=== PATIENT | male | born 1985 | race Caucasian/White ===

== ENCOUNTER 2017-05-22 07:09 | Emergency (ER) | payer SELFPAY ==
[2017-05-22 07:16] VITALS: BP 130/78; PULSE 73; RESP 18; TEMP 97.9
[2017-05-22] MEDS ORDERED: SODIUM CHLORIDE 0.9% 500 ML IV STA (07:51)
[2017-05-22] MEDS ORDERED: RX INFO: IV CONTRAST WAS GIVEN 1 EACH MISC MISCELLANE PRN (07:51)
[2017-05-22] MEDS ORDERED: MORPHINE SULFATE 5 MG/ML SYRINGE IV STA (07:51)
[2017-05-22] MEDS ORDERED: SODIUM CHLORIDE 0.9% 1,000 ML IV STA (07:51)
--- NOTE | 2017-05-22 08:24 | ED ---
General Adult HPI - General Chief complaint: Abdominal Pain Stated complaint: Abdominal Pain Time Seen by Provider: 05/22/17 07:25 Source: patient, RN notes reviewed, old records reviewed Mode of arrival: ambulatory Limitations: no limitations - History of Present Illness Initial comments: This is a 32-year-old male the ER for evaluation of bowel pain, severe anterior abdominal pain. Patient states the has no pain medication modifying factors for pain at home, denies fever, no nausea vomiting or diarrhea. No difficulties with urination. No rashes. Patient has no prior history of similar pain no significant medical history. - Related Data Allergies Allergy/AdvReac Type Severity Reaction Status Date / Time No Known Allergies Allergy Verified 05/22/17 07:15 Review of Systems ROS Statement: Those systems with pertinent positive or pertinent negative responses have been documented in the HPI. ROS Other: All systems not noted in ROS Statement are negative. Past Medical History Past Medical History: No Reported History History of Any Multi-Drug Resistant Organisms: None Reported Past Surgical History: No Surgical Hx Reported Past Psychological History: No Psychological Hx Reported Smoking Status: Never smoker Past Alcohol Use History: None Reported Past Drug Use History: None Reported General Exam Limitations: no limitations General appearance: alert, in no apparent distress Head exam: Present: atraumatic, normocephalic, normal inspection Eye exam: Present: normal appearance, PERRL, EOMI. Absent: scleral icterus, conjunctival injection, periorbital swelling ENT exam: Present: normal exam, mucous membranes moist Neck exam: Present: normal inspection. Absent: tenderness, meningismus, lymphadenopathy Respiratory exam: Present: normal lung sounds bilaterally. Absent: respiratory distress, wheezes, rales, rhonchi, stridor Cardiovascular Exam: Present: regular rate, normal rhythm, normal heart sounds. Absent: systolic murmur, diastolic murmur, rubs, gallop, clicks GI/Abdominal exam: Present: soft, normal bowel sounds. Absent: distended, tenderness, guarding, rebound, rigid Extremities exam: Present: normal inspection, full ROM, normal capillary refill. Absent: tenderness, pedal edema, joint swelling, calf tenderness Back exam: Present: normal inspection Neurological exam: Present: alert, oriented X3, CN II-XII intact Psychiatric exam: Present: normal affect, normal mood Skin exam: Present: warm, dry, intact, normal color. Absent: rash Course Vital Signs 05/22/17 07:13 Temperature 97.9 F Pulse Rate 73 Respiratory 18 Rate Blood Pressure 130/78 O2 Sat by Pulse 98 Oximetry Disposition Clinical Impression: Abdominal pain Disposition: Left Against Medical Advice Condition: Good Instructions: Abdominal Pain (ED) Referrals: Micky Benson MD [Primary Care Provider] - 1-2 days
== END 2017-05-22 08:20 | disposition left against medical advice (07) ==
LOC: EC 07:09
DX: R10.9 Unspecified abdominal pain (principal)
CPT/HCPCS: 99284

== ENCOUNTER → 2018-09-02 | Outpatient (CLI) | payer OTHER ==
--- NOTE | 2018-09-02 14:47 | MR ---
EXAMINATION TYPE: MR lumbar spine wo con DATE OF EXAM: 09/02/2018 COMPARISON: None HISTORY: Lumbar Radiculopathy TECHNIQUE: Multiplanar, multisequence images of the lumbar spine were acquired. L1-L2: Normal disc appearance without desiccation. No herniation, protrusion or disc bulging. No ca nal stenosis is present. Foramina are patent bilaterally. L2-L3: Normal disc appearance without desiccation. No herniation, protrusion or disc bulging. No ca nal stenosis is present. Foramina are patent bilaterally. L3-L4: Normal disc appearance without desiccation. No herniation, protrusion or disc bulging. No ca nal stenosis is present. Foramina are patent bilaterally. L4-L5: Normal disc appearance without desiccation. No herniation, protrusion or disc bulging. No ca nal stenosis is present. Foramina are patent bilaterally. L5-S1: There is a loss of disc height and signal at intervertebral level with associated endplate dis cogenic marrow signal change, there is a disc herniation present with probable extruded disc fragment causing anterolateral mass effect on the thecal sac posterior to the L5 vertebral body and also like ly on the right S1 nerve root. No significant foraminal encroachment on the right, circumferential ex tension of endplate disc complex encroaches somewhat on the left neural foramen. There is a posterior broad-based disc bulge present which may contact the proximal left S1 nerve root. Lumbar segments are intact. No paraspinal masses are identified. Conus medullaris has a normal appe arance. Lumbar vertebral bodies show preserved height and alignment. Suspect marrow signal is due to red marrow. IMPRESSION: Large disc herniation, disc fragment present as described posterior to the L5 vertebral body
== END | disposition home or self-care (01) ==
LOC: RADMRIMAIN 11:17
PROVIDERS: ATTEND Family Medicine
DX: M51.16 Intervertebral disc disorders with radiculopathy, lumbar region (principal)
CPT/HCPCS: 72148

== ENCOUNTER → 2018-11-15 | Outpatient (CLI) | payer OTHER ==
[2018-11-15 12:36] VITALS: BP 113/73; RESP 16
--- NOTE | 2018-11-15 13:02 | P.PAINCN ---
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, and he does a lot of heavy lifting, which he doesn't do it anymore, patient reported that the intensity of the pain interfering with her quality of life, it is constant and aggravated with any activity, with intensity 7/10 increased to 10 over 10, is able to ambulate with some difficulty, and all symptoms is low back with the right lower extremity, patient tried physical therapy and chiropractics without any benefit, and he is currently on Motrin and the Neurontin and he continued to have severe pain and numbness, he denies any fever or night sweats he denies any change in the bowel movements or urination. Past Medical History Past Medical History: No Reported History History of Any Multi-Drug Resistant Organisms: None Reported Past Surgical History: No Surgical Hx Reported Smoking Status: Never smoker Medications and Allergies Home Medications Medication Instructions Recorded Confirmed Type Acyclovir 1 tab PO DAILY 11/15/18 11/15/18 History Gabapentin [Neurontin] 1 tab PO TID 11/15/18 11/15/18 History Ibuprofen [Motrin] 1 tab PO DAILY PRN 11/15/18 11/15/18 History Allergies Allergy/AdvReac Type Severity Reaction Status Date / Time No Known Allergies Allergy Verified 11/15/18 12:23 Physical Exam Vitals: Vital Signs Resp BP Pulse Ox 11/15/18 12:30 16 113/73 96 Intake and Output 11/14/18 11/15/18 11/15/18 22:59 06:59 14:59 Other: Weight 92.986 kg Social history : not smoker , NO ETOH , NO Illegal drugs use . : Review of Systems : - Constitutional : no chills , no fever , no night sweats , - Ears : no ear discharge , no change in hearing -Nose, Mouth ,Throat ; no bleeding gums, no sore throat , no epistaxis , -Cardiovascular : Denies chest pain, , no orthopnea , no palpitation -Respiratory : Denies cough , no dyspnea , no hemoptysis -Gastrointestinal : no change in bowel habits , no coffee-ground emesis . -Genitourinary : No hematuria , no discharge , no incontinence, -Musculoskeletal : No gait dysfunction , report low back pain and right lower extremity numbness and tingling , - Neurological : no ataxia , no tremor , no sezure , -Psychatric : no suicidal ideation no hallucination - Endocrine : no cold intolerence , no polyuria , no polydypsia , -Hematologic : no easy bleeding , no easy brusing , -Allergic / immm : no angioedema , no wheezing ,no allergic r hinitis -Integumentary : no brttle nails , no change hair / nails , no foot/leg ulcers . Physical Examinations : -Constitutional : Cooperative , not in acute distress . -HEENT : nech ; supple , no Lymphadenopathy , no Thyromegaly , :eyes : no icterus, no photophobia . ENT : normal oropharynx , no Thrush - Respiratory : Chest clear to auscultations Bilaterally , no wheezing . - Cardiovascular : regular rate and rhythem , S1 , S2 , no S3 , no S4. - Gastrointestina l: abdomen soft no tenderness , no organomegally . - Genitourinary : Defferred . -Integumentary : No cellulitis , no ulcers , normal skin turgor , no cyanotic . - neurologic : Cranial nerve II to XII intact , no focal neurological deffecit -psychatric : alert , oriented X 3 , appropriate affect , intact judgment and insight . -Lymphatic : no Lymphadenopathy. - musculoskeltal: Antalgic gait . Lumber spine moter stegnth lower extremities ,thigh and legs 4/5 Right side , 5/5 Left side Normal sensation in the lower extremities deep tendon reflexes : normal Knee Jerk , normal ankle Jerk lumber facet Loading Test =negative bilaterally Range of motion of the lumbar spine Flexion 60 degrees, extension 30 degrees strait leg raising test , positive at 30 degree on the right side Fabere test positive RT and negative LT . Results Comments: MRI of the lumbar spine done at [facility]= L5-S1 loss of disc height ,and disc herniation. Assessment and Plan Plan: Assessment and plan= 1-lumbar radiculopathy. 2-lumbar disc herniation at L5-S1. Patient could benefit from right-sided L5-S1 transforaminal epidural steroid injections under fluoroscopy guidance, Patient should continue to use his current medication Neurontin 300 mg 3 times a day and Motrin 800 mg 3 times a day when necessary Time with Patient: Greater than 30 PQRS Measure Charge Sheet Measure #130: Documentation of Current Meds in Medical Chart: Patient's medications documented in chart Measure #226: Tobacco Use: Screen & Cessation Intervention: Pt not a tobacco user Measure #111: Pneumonia Vaccination: Pneumococcal vaccine NOT administered or previously given Measure #47: Advance Care Plan: Advance care planning discussed & documented, pt chose/unable to give Measure #412: Opioid Treatment Agreement: No documentation of signed opioid treatment agreement Measure #408: Opioid Therapy Follow-up Evaluation: Patient had NO f/u eval minimum every 3 months during opioid therapy Measure #317: Preventitive Care & Scrn High Bld Press & F/U: Normal blood pressure, f/u not required Measure #128: Body Mass Index (BMI) Screening & Follow-up: BMI documented ABOVE normal parameters - f/u documented Measure #131: Pain Assessment & Follow-up: Pain positive & plan documented, Follow-up scheduled Measure #431: Unhealthy Alcohol Use Preventative Care & Scrn: Patient not identified as an unhealthy alcohol user PQRS Narrative: Smoking Status Never smoker Blood Pressure 113/73 Pain Intensity [Bilateral 5 Lower Back] Scale Used Numeric (1 - 10) Hx Alcohol Use (MH) No Home Medications: Ambulatory Orders Acyclovir 1 tab PO DAILY 11/15/18 Gabapentin [Neurontin] 1 tab PO TID 11/15/18 Ibuprofen [Motrin] 1 tab PO DAILY PRN 11/15/18
== END | disposition home or self-care (01) ==
LOC: PNWHC3 12:14
PROVIDERS: ATTEND Specialist
DX: G89.29 Other chronic pain (principal); M51.17 Intervertebral disc disorders with radiculopathy, lumbosacral region
CPT/HCPCS: 99211

== ENCOUNTER 2018-11-23 08:53 | Day surgery (SDC) | payer OTHER ==
[2018-11-18 11:27] VITALS: BMI 27.0
[~2018-11-23 08:53] MED LIST: LACTATED RINGERS 1,000 ML IV SCH
[2018-11-23 09:17] VITALS: TEMP 97.7
--- NOTE | 2018-11-23 09:38 | P.PCN ---
Date of Procedure: 11/23/18 Description of Procedure: DESCRIPTION OF PROCEDURE(S): PREOPERATIVE DIAGNOSIS: Lumbar radiculopathy POSTOPERATIVE DIAGNOSIS: Lumbar radiculopathy PROCEDURE 1. Transforaminal epidural steroid injection under fluoroscopic guidance right L5-S1 2. Lumbar epidurogram ANESTHESIA: Local with 1% lidocaine 3 ml ; IV sedation with Versed 2 mg and fentanyl 100 micrograms. Surgeon: Andrae Chen M.D. PROCEDURE INDICATION: The patient with low back pain and radiculopathy symptoms unresponsive to conservative treatment. PROCEDURE DESCRIPTION / TECHNIQUE: The patient was seen and identified in the preoperative area. Risks, benefits, complications, and alternatives were discussed with the patient. The patient agreed to proceed with the procedure and signed the consent. IV was started, and vital signs were stable. Patient was taken to the OR and time out was completed. The patient was placed in the prone position on procedure table and a pillow was placed under the abdomen to reduce lumbar lordosis. The lumbosacral area was prepped and draped in the usual sterile fashion. Vital signs were closely monitored during the procedure. Conscious sedation was used. Using oblique fluoroscopy, the chin of the ``Clifford dog and the skin and deeper tissues just below was localized with 1% lidocaine. Subsequently, a 22- gauge 3.5-inch spinal needle was advanced under a tunneled view fluoroscopic guidance just underneath the chin of the ``Clifford dog . Under lateral fluoroscopy, the needle was then advanced to the posterior border of the foramen. After negative aspiration of CSF and blood and with no paresthesias, 1 mL of Omnipaque-240 contrast dye was injected and there was no evidence of intravascular injection. The solution containing 20 mg of Decadron and 1 mL of 0.25% bupivacaine was then delivered. The needle was withdrawn intact. At the end of the procedure, skin was cleansed, and bandages were applied. COMPLICATIONS: None COMMENTS: DISPOSITION / PLANS: The patient was placed in a supine position and transferred to the recovery area in a stable condition for observation. There was no evidence of lower extremity motor or sensory deficit after the procedure. Patient was discharged from the recovery room after meeting discharge criteria. Home discharge instructions were given to the patient by the staff.
[2018-11-23] MEDS ORDERED: IV FLUID CONTINUATION 1,000 ML IV ONE ×2 (09:43)
[2018-11-23 09:59] VITALS: BP 142/82; PULSE 60; RESP 17
--- NOTE | 2018-11-23 15:03 | FL ---
Fluoroscopy HISTORY: Pain 2 seconds fluoroscopy time supplied to the referring clinician. 2 intraoperative C-arm images docume nt the procedure. See dictated report from anesthesia.
== END 2018-11-23 10:07 | disposition home or self-care (01) ==
LOC: ORPAIN 08:53
PROVIDERS: ATTEND Pain Medicine Pain Medicine
DX: G89.29 Other chronic pain (principal); M51.16 Intervertebral disc disorders with radiculopathy, lumbar region; Z79.899 Other long term (current) drug therapy
CPT/HCPCS: 64483

== ENCOUNTER 2018-12-07 06:07 | Day surgery (SDC) | payer OTHER ==
[2018-12-07 06:31] VITALS: TEMP 98.9
[2018-12-07] MEDS ORDERED: LACTATED RINGERS 1,000 ML IV ONE (06:33)
[2018-12-07] MEDS ORDERED: LIDOCAINE 1% 20 ML VIAL (10MG/ML) FOR IV START INTRADERMA ONE (06:34)
[2018-12-07] MEDS ORDERED: LACTATED RINGERS 1,000 ML IV SCH (07:00)
--- NOTE | 2018-12-07 07:48 | P.PCN ---
Date of Procedure: 12/07/18 Procedure(s) Performed: PREOPERATIVE DIAGNOSIS: Lumbar radiculopathy POSTOPERATIVE DIAGNOSIS: Lumbar radiculopathy PROCEDURE 1. Transforaminal epidural steroid injection under fluoroscopic guidance right L5-S1 2. Lumbar epidurogram ANESTHESIA: Local with 1% lidocaine 3 ml ; IV sedation with Versed 2 mg and fentanyl 50 micrograms. Surgeon: Tabby Myers M.D. PROCEDURE INDICATION: The patient with low back pain and radiculopathy symptoms unresponsive to conservative treatment. PROCEDURE DESCRIPTION / TECHNIQUE: The patient was seen and identified in the preoperative area. Risks, benefits, complications, and alternatives were discussed with the patient. The patient agreed to proceed with the procedure and signed the consent. IV was started, and vital signs were stable. Patient was taken to the OR and time out was completed. The patient was placed in the prone position on procedure table. The lumbosacral area was prepped and draped in the usual sterile fashion. Vital signs were closely monitored during the procedure. Conscious sedation was used. Using oblique fluoroscopy, the chin of the ``Clifford dog and the skin and deeper tissues just below was localized with 1% lidocaine. Subsequently, a 22- gauge 3.5-inch Quinke spinal needle was advanced under a tunneled view fluoroscopic guidance just underneath the chin of the ``Clifford dog . Under lateral fluoroscopy, the needle was then advanced to the posterior border of the foramen. After negative aspiration of CSF and blood and with no paresthesias, 1 mL of Isovue 200 contrast dye was injected under live fluoroscopy and there was no evidence of intravascular injection. The solution containing `0 mg of Decadron and 1 mL of 1% lidocaine was then delivered. The needle was withdrawn intact. At the end of the procedure, skin was cleansed, and bandages were applied. COMPLICATIONS: None COMMENTS: DISPOSITION / PLANS: The patient was placed in a supine position and transferred to the recovery area in a stable condition for observation. There was no evidence of lower extremity motor or sensory deficit after the procedure. Patient was discharged from the recovery room after meeting discharge criteria. Home discharge instructions were given to the patient by the staff. The patient will follow up in clinic in 3-4 weeks' time.
[2018-12-07] MEDS ORDERED: IV FLUID CONTINUATION 650 ML IV ONE (07:52)
[2018-12-07 07:57] VITALS: BP 113/66; PULSE 53; RESP 18
--- NOTE | 2018-12-07 08:05 | FL ---
EXAMINATION TYPE: FL guided pain mgmt statistic DATE OF EXAM: 12/07/2018 HISTORY: Flouroscopy time 7 seconds of fluoroscopy provided. IMPRESSION: 1. Fluoroscopy time.
== END 2018-12-07 08:25 | disposition home or self-care (01) ==
LOC: ORPAIN 06:07
PROVIDERS: ATTEND Anesthesiology
DX: M51.16 Intervertebral disc disorders with radiculopathy, lumbar region (principal); Z79.1 Long term (current) use of non-steroidal anti-inflammatories (NSAID); Z79.899 Other long term (current) drug therapy
CPT/HCPCS: 64483; J2250; J1100; J3010; Q9966

== ENCOUNTER 2019-12-22 04:16 | Emergency (ER) | payer BC, OTHER ==
[2019-12-22 04:23] VITALS: TEMP 97.9
--- NOTE | 2019-12-22 04:52 | ED ---
Chest Pain HPI - General Chief Complaint: Chest Pain Stated Complaint: Chest pain, vomiting Time Seen by Provider: 12/22/19 04:26 Source: patient Mode of arrival: ambulatory Limitations: no limitations - History of Present Illness Initial Comments: This patient is 34-year-old man who presents to be evaluated for substernal chest pain that has been going on since a little after 7 PM tonight. Patient states that he had a little bit of stress tonight at work. He states that he had this sent home a worker who had been drinking. Following that he noted that his chest was feeling tight. He also has had some intermittent nausea throughout the course of the evening. MD Complaint: chest pain Onset/Timin -: hour(s) Onset: during rest Pain Location: substernal Pain Radiation: none Severity: moderate Quality: tightness Consistency: constant Improves With: nothing Worsens With: nothing Anginal Symptoms: nausea Treatments Prior to Arrival: none - Related Data Home Medications Medication Instructions Recorded Confirmed Acyclovir 1 tab PO DAILY 11/15/18 12/07/18 Gabapentin [Neurontin] 1 tab PO TID 11/15/18 12/07/18 Ibuprofen [Motrin] 1 tab PO DAILY PRN 11/15/18 12/07/18 Allergies Allergy/AdvReac Type Severity Reaction Status Date / Time No Known Allergies Allergy Verified 12/22/19 04:23 Review of Systems ROS Statement: Those systems with pertinent positive or pertinent negative responses have been documented in the HPI. ROS Other: All systems not noted in ROS Statement are negative. Constitutional: Denies: fever, chills Respiratory: Denies: cough, dyspnea Cardiovascular: Reports: as per HPI, chest pain. Denies: palpitations, orthopnea, edema, syncope Gastrointestinal: Reports: nausea. Denies: abdominal pain, vomiting, diarrhea Genitourinary: Denies: dysuria, hematuria Musculoskeletal: Denies: back pain Skin: Denies: rash Neurological: Denies: headache, weakness EKG Findings - EKG Results: EKG: interpreted by HEIDI, sinus rhythm, normal axis, normal ST/T EKG shows: bradycardia (Rate 45 bpm) - Blocks, [place], Hypertrophy, ST Abn: AV and intraventricular conduction: right bundle branch block (fixed/intermittent, complete/incomplete) (Incomplete) Past Medical History Past Medical History: No Reported History, Asthma, Seizure Disorder Additional Past Medical History / Comment(s): back pain and rt leg pain, hx age 9 fall with fx skull History of Any Multi-Drug Resistant Organisms: None Reported Past Surgical History: Appendectomy Additional Past Surgical History / Comment(s): PAIN PROCEDURES Past Anesthesia/Blood Transfusion Reactions: No Reported Reaction Past Psychological History: Anxiety Smoking Status: Current some day smoker Past Alcohol Use History: None Reported Past Drug Use History: Marijuana - Past Family History Mother Family Medical History: No Reported History General Exam Limitations: no limitations General appearance: alert, in no apparent distress Head exam: Present: atraumatic, normocephalic Eye exam: Present: normal appearance. Absent: scleral icterus, conjunctival injection Respiratory exam: Present: normal lung sounds bilaterally. Absent: respiratory distress, wheezes, rales, rhonchi, stridor Cardiovascular Exam: Present: normal rhythm, bradycardia (Heart rate 56 at my exam), normal heart sounds. Absent: systolic murmur, diastolic murmur, rubs, gallop GI/Abdominal exam: Present: soft. Absent: distended, tenderness, guarding, rebound, rigid, mass Extremities exam: Present: normal inspection, normal capillary refill. Absent: pedal edema, calf tenderness Back exam: Present: normal inspection. Absent: CVA tenderness (R), CVA tenderness (L) Neurological exam: Present: alert Skin exam: Present: warm, dry, intact, normal color. Absent: rash Course Vital Signs 12/22/19 04:19 Temperature 97.9 F Pulse Rate 55 L Respiratory 18 Rate Blood Pressure 147/88 O2 Sat by Pulse 99 Oximetry Disposition Clinical Impression: Chest pain Disposition: HOME SELF-CARE Condition: Good Instructions (If sedation given, give patient instructions): Chest Pain (ED) Is patient prescribed a controlled substance at d/c from ED?: No Referrals: Jamie Melgar MD [Primary Care Provider] - 1-2 days
[2019-12-22 05:10] LABS: Basophils # (A) 0.1 k/uL (0-0.2); Basophils % (A) 1 %; Eosinophils # (A) 0.2 k/uL (0-0.7); Eosinophils % (A) 2 %; HCT 46.2 % (39.0-53.0); HGB 15.1 gm/dL (13.0-17.5); Lymphocytes # (A) 2.1 k/uL (1.0-4.8); Lymphocytes % (A) 18 %; MCH 28.7 pg (25.0-35.0); MCHC 32.6 g/dL (31.0-37.0); MCV 87.8 fL (80.0-100.0); Mean Platelet Volume 7.7; Monocytes # (A) 0.5 k/uL (0-1.0); Monocytes % (A) 4 %; Neutrophils # (A) 8.5 k/uL (1.3-7.7); Neutrophils % (A) 74 %; Platelet Count 294 k/uL (150-450); RBC 5.26 m/uL (4.30-5.90); WBC 11.6 k/uL (3.8-10.6)
--- NOTE | 2019-12-22 05:10 | XR ---
EXAMINATION TYPE: XR chest 2V DATE OF EXAM: 12/22/2019 COMPARISON: NONE HISTORY: Chest pain TECHNIQUE: 2 views FINDINGS: Heart and mediastinum are normal. Lungs are clear. Diaphragm is normal. Bony thorax appears normal. IMPRESSION: Normal chest.
[2019-12-22 05:22] LABS: ALT 22 U/L (4-49); AST 30 U/L (17-59); African American GFR (CKD) >90 (>60 ml/min/1.73 sqM); Albumin 4.6 g/dL (3.5-5.0); Alkaline Phosphatase 63 U/L (38-126); Amylase 45 U/L (30-110); Anion Gap 9 mmol/L; Blood Urea Nitrogen 15 mg/dL (9-20); Calcium 10.5 mg/dL (8.4-10.2); Carbon Dioxide 21 mmol/L (22-30); Chloride 106 mmol/L (98-107); Glucose 102 mg/dL (74-99); Magnesium 1.8 mg/dL (1.6-2.3); Non-African American GFR(CKD) >90 (>60 ml/min/1.73 sqM); Sodium 136 mmol/L (137-145); Total Bilirubin 0.7 mg/dL (0.2-1.3); Total Protein 7.2 g/dL (6.3-8.2)
[2019-12-22 05:31] LABS: Partial Thromboplastin Time 25.7 sec (22.0-30.0); Prothrombin Time 10.6 sec (9.0-12.0)
[2019-12-22 05:54] LABS: Potassium 4.4 mmol/L (3.5-5.1)
[2019-12-22 06:11] VITALS: RESP 16
[2019-12-22 06:12] VITALS: BP 122/77; PULSE 82
== END 2019-12-22 06:35 | disposition home or self-care (01) ==
LOC: EC 04:16
DX: R07.89 Other chest pain (principal); F41.9 Anxiety disorder, unspecified; M54.9 Dorsalgia, unspecified; F17.200 Nicotine dependence, unspecified, uncomplicated; Z79.899 Other long term (current) drug therapy
CPT/HCPCS: 36415; 71046; 80053; 82150; 83690; 83735; 84484; 85025; 85610; 85730; 93005; 99285

== ENCOUNTER 2020-05-15 00:03 | Emergency (ER) | payer BC ==
[2020-05-15 00:21] VITALS: BP 135/90; PULSE 84; RESP 16; TEMP 98.6
[2020-05-15] MEDS ORDERED: DIAZEPAM 5 MG/ML 2 ML INJ IM ONE (00:30)
[2020-05-15] MEDS ORDERED: HYDROmorphone 1 MG/ML 1 ML SYRINGE IM STA (00:30)
--- NOTE | 2020-05-15 00:31 | ED ---
Back Pain HPI - General Chief Complaint: Back Pain/Injury Stated Complaint: Back Pain Time Seen by Provider: 05/15/20 00:22 Source: patient Limitations: no limitations - History of Present Illness Initial Comments: 35-year-old male patient presents to the emergency department today for evaluation of low back pain. Patient states that he has chronic low back pain and does see ski edge painter at [facility]. Patient states that his problem started about a year and a half ago. States he has had MRIs performed that showed bulging disc and degenerative disc disease. States that he takes [place] at home. States couple days ago he sneezed causing increased pain to the right low back. Denies radiation down his leg. Denies any numbness or tingling to the lower extremities. Denies saddle anesthesia or loss of bowel or bladder control. He is able to ambulate. States changing positions makes his pain worsen. Denies any fever or chills. He denies any history of IV drug use. States that he has seen his primary care physician and received injections of Toradol and steroids, he is currently taking oral muscle relaxant steroid without relief. Denies any new symptoms, states that his pain is consistent with his past pain exacerbations. Patient denies any recent rash, cough, shortness of breath, chest pain, abdominal pain, nausea, vomiting, diarrhea, constipation, dizziness, weakness, hematuria, dysuria, urinary urgency, urinary frequency, headache, visual changes, or any other complaints. - Related Data Home Medications Medication Instructions Recorded Confirmed Acyclovir 1 tab PO DAILY 11/15/18 12/07/18 Gabapentin [Neurontin] 1 tab PO TID 11/15/18 12/07/18 Ibuprofen [Motrin] 1 tab PO DAILY PRN 11/15/18 12/07/18 Allergies Allergy/AdvReac Type Severity Reaction Status Date / Time No Known Allergies Allergy Verified 05/15/20 00:20 Review of Systems ROS Statement: Those systems with pertinent positive or pertinent negative responses have been documented in the HPI. ROS Other: All systems not noted in ROS Statement are negative. Past Medical History Past Medical History: No Reported History, Asthma, Seizure Disorder Additional Past Medical History / Comment(s): back pain and rt leg pain, hx age 9 fall with fx skull History of Any Multi-Drug Resistant Organisms: None Reported Past Surgical History: Appendectomy Additional Past Surgical History / Comment(s): PAIN PROCEDURES Past Anesthesia/Blood Transfusion Reactions: No Reported Reaction Past Psychological History: Anxiety Smoking Status: Current some day smoker Past Alcohol Use History: None Reported Past Drug Use History: Marijuana - Past Family History Mother Family Medical History: No Reported History General Exam Limitations: no limitations General appearance: alert, in no apparent distress, other (This is a well- developed, well-nourished adult male patient in no acute distress. Vital signs upon presentation are temperature 98.6F, pulse 84, respirations 16, blood pressure 135/90, pulse ox 99% on room air.) Respiratory exam: Present: normal lung sounds bilaterally. Absent: respiratory distress, wheezes, rales, rhonchi, stridor Cardiovascular Exam: Present: regular rate, normal rhythm, normal heart sounds. Absent: systolic murmur, diastolic murmur, rubs, gallop, clicks GI/Abdominal exam: Present: soft, normal bowel sounds. Absent: distended, tenderness, guarding, rebound, rigid Extremities exam: Present: normal inspection, full ROM, normal capillary refill, other (Skin to the lower eduction wheezes pink, warm, dry. Cap refills less than 3 seconds. Pedal and posttibial pulses are 2+ and equal bilaterally.). Absent: tenderness, pedal edema, joint swelling, calf tenderness Back exam: Present: normal inspection, paraspinal tenderness (Right lumbar). Absent: vertebral tenderness Neurological exam: Present: alert, oriented X3, CN II-XII intact Psychiatric exam: Present: normal affect, normal mood Skin exam: Present: warm, dry, intact, normal color. Absent: rash Course Vital Signs 05/15/20 00:16 Temperature 98.6 F Pulse Rate 84 Respiratory 16 Rate Blood Pressure 135/90 O2 Sat by Pulse 99 Oximetry Medical Decision Making - Medical Decision Making 35-year-old male patient presents to the emergency department today for evaluation of increased to his chronic low back pain. Denies any new injury. Physical examination is unremarkable. He is neurologically intact with no focal deficits. Has no concerning symptoms for cauda equina. He is able to ambulate. He has good strength in his lower extremities. He'll be given IM injections of Dilaudid and Valium. He does have pain medication at home so will not be given any prescriptions. Is instructed on his primary care physician and his ski edge painter. Return parameters were discussed in detail. He verbalizes understanding and agrees with this plan. Disposition Clinical Impression: Chronic back pain Disposition: HOME SELF-CARE Condition: Good Instructions (If sedation given, give patient instructions): Back Pain (ED) Additional Instructions: Follow-up with your ski edge painter and primary care physician for recheck as soon as possible. Return to the emergency department immediately for any new, worsening, or concerning symptoms. Is patient prescribed a controlled substance at d/c from ED?: No Referrals: Jamie Melgar MD [Primary Care Provider] - 1-2 days Time of Disposition: 00:31
== END 2020-05-15 00:47 | disposition home or self-care (01) ==
LOC: EC 00:03
DX: G89.29 Other chronic pain (principal); M54.5 Low back pain; G40.909 Epilepsy, unspecified, not intractable, without status epilepticus; F41.9 Anxiety disorder, unspecified; F17.200 Nicotine dependence, unspecified, uncomplicated; Z79.899 Other long term (current) drug therapy
CPT/HCPCS: 99283; 96372 ×2; J3360; J1170

== ENCOUNTER → 2020-08-14 | Outpatient (CLI) | payer BC ==
[2020-08-14 08:47] VITALS: BP 114/73; PULSE 66; RESP 16; TEMP 97.7
--- NOTE | 2020-08-20 08:01 | P.PN ---
Progress Note - Text Progress Note Date: 08/14/20 This is a 35 years old male, who was diagnosed with lumbar radiculopathy and lumbar herniated disc disease, previously we have done lumbar epidural steroid injection,(done in 2019 ) and patient currently on ibuprofen and Neurontin, but during the interview patient referred that he is here for medication management, and he reported that the injection never helped him to control his pain, and he is interested only in medication management, I explained to the patient that the [facility] pain clinic we do interventional pain management only, and patient will be referred to for medication management , and he'll follow up with [facility] pain clinic when necessary
== END ==
LOC: PNWHC3 08:28
PROVIDERS: ATTEND Specialist
DX: M54.16 Radiculopathy, lumbar region (principal); M51.26 Other intervertebral disc displacement, lumbar region
CPT/HCPCS: 99211

== ENCOUNTER → 2020-09-06 | Outpatient (CLI) | payer BC | END | disposition home or self-care (01) | LOC: LABWHC1 13:20 | PROVIDERS: ATTEND Internal Medicine | DX: Z20.822 Contact with and (suspected) exposure to COVID-19 (principal); R05 Cough; R50.9 Fever, unspecified | CPT/HCPCS: U0003; C9803; U0005 ==

== ENCOUNTER → 2024-10-05 | Outpatient (CLI) | payer BC ==
--- NOTE | 2024-10-06 15:50 | MR ---
EXAMINATION TYPE: MR knee LT wo con DATE OF EXAM: 10/05/2024 COMPARISON: Outside left knee x-ray September 26, 2024 HISTORY: Lt knee pain TECHNIQUE: Multiplanar, multisequence images of the knee is performed without IV contrast. FINDINGS: MEDIAL MENISCUS: Anterior and posterior horns are intact without tear. LATERAL MENISCUS: Anterior and posterior horns are intact without tear. CRUCIATE LIGAMENTS: The anterior and posterior cruciate ligaments are intact and unremarkable. COLLATERAL LIGAMENTS: The medial collateral ligament and lateral collateral ligament complex are inta ct and unremarkable. EXTENSOR MECHANISM: Visualized quadriceps and patellar tendons are intact. Heterogeneous increased si gnal in the subcutaneous fat superior to the patella deep to the distal quadriceps tendon. EFFUSION: Small size suprapatellar joint effusion. POPLITEAL CYST: No popliteal/eller cyst. TRICOMPARTMENT SPACES: Mild tricompartment joint space loss. No significant spurring. CARTILAGE: Tricompartmental articular cartilage is preserved. BONE MARROW SIGNAL: No focal abnormal marrow signal is appreciated. OTHER: No additional significant abnormality is appreciated. IMPRESSION: 1. No meniscal or ligamentous tear is seen. 2. Small-sized suprapatellar joint effusion. 3. Possible anterior suprapatellar fat pad impingement syndrome. Correlate clinically. [facility], , 10/06/2024 3:48 PM
== END | disposition home or self-care (01) ==
LOC: RADMRIMAIN 20:10
PROVIDERS: ATTEND Orthopaedic Surgery
DX: M25.462 Effusion, left knee (principal); M25.562 Pain in left knee